=== PATIENT | female | born 1940 | race Caucasian/White ===

== ENCOUNTER → 2017-09-26 | Outpatient (CLI) | payer OTHER | LOC: FIMAGING 12:17 | PROVIDERS: ATTEND Family Medicine | DX: Z12.31 Encounter for screening mammogram for malignant neoplasm of breast (principal); Z80.3 Family history of malignant neoplasm of breast ==

== ENCOUNTER → 2018-03-20 | Outpatient (CLI) | payer OTHER | LOC: BHFA 13:30 | PROVIDERS: ATTEND Internal Medicine Cardiovascular Disease | DX: I49.1 Atrial premature depolarization (principal); I10 Essential (primary) hypertension ==

== ENCOUNTER → 2018-04-02 | Outpatient (CLI) | payer OTHER | LOC: BHFA 10:00 | PROVIDERS: ATTEND Internal Medicine Cardiovascular Disease | DX: I49.1 Atrial premature depolarization (principal); I42.9 Cardiomyopathy, unspecified ==

== ENCOUNTER → 2018-04-30 | Outpatient (CLI) | payer OTHER | LOC: BHFA 09:30 | PROVIDERS: ATTEND Internal Medicine Cardiovascular Disease | DX: I49.1 Atrial premature depolarization (principal); I11.9 Hypertensive heart disease without heart failure; I43 Cardiomyopathy in diseases classified elsewhere; R94.30 Abnormal result of cardiovascular function study, unspecified | CPT/HCPCS: 78452; 93017; A9500; J2785 ==

== ENCOUNTER 2018-08-31 08:52 | Inpatient (IN) | payer OTHER ==
[2018-08-31] MEDS ORDERED: NS 1,000 ML IV ONE (09:13)
[2018-08-31 09:26] LABS: PLATELET COUNT 430 10^3/uL (150-400)
--- NOTE | 2018-08-31 09:37 | EDPHY ---
H & P Stated Complaint: gen abd pain -"constipation" x 5 days Time Seen by Provider: 08/31/18 09:10 HPI/ROS: CHIEF COMPLAINT: Abdominal pain HISTORY OF PRESENT ILLNESS: The patient presents the ED with 5 days of worsening lower abdominal pain. The patient was constipated earlier in the week. She saw her primary care provider who recommended laxatives which she took on . The patient reports she was up all night with crampy abdominal pain. She has had several small loose stools. She denies fever. She does report nausea and loss of appetite. Past surgical history is significant for a hysterectomy. The patient had been on azithromycin approximately 1 week ago for bronchitis. The patient denies any current respiratory symptoms. She denies dysuria. The patient does have a remote history of diverticulitis which was treated with antibiotics. The patient reports that her pain is moderate in nature. She reports associated symptoms of subjective dehydration. REVIEW OF SYSTEMS: A comprehensive 10 point review of systems is otherwise negative aside from elements mentioned in the history of present illness. Source: Patient, Family - Medical/Surgical History Hx Asthma: No Hx Chronic Respiratory Disease: No Hx Diabetes: No Hx Cardiac Disease: No Hx Renal Disease: No Hx Cirrhosis: No Hx Alcoholism: No Hx HIV/AIDS: No Hx Splenectomy or Spleen Trauma: No Other PMH: HTN, Meniere's disease, bladder repair surgery, tilted bladder - Social History Smoking Status: Former smoker - Physical Exam Exam: General Appearance: Alert, no distress Eyes: Pupils equal and round no pallor or injection ENT, Mouth: Dry mucous membranes Respiratory: There are no retractions, lungs are clear to auscultation Cardiovascular: Regular rate and rhythm Gastrointestinal: Tenderness to palpation in the lower abdomen, greatest in the left lower quadrant Neurological: 5/5 strength all 4 extremities Skin: Warm and dry, no rashes Musculoskeletal: Neck is supple nontender Extremities: symmetrical, full range of motion Constitutional: Initial Vital Signs Temperature (C) 36.4 C 08/31/18 08:57 Heart Rate 108 H 08/31/18 08:57 Respiratory Rate 20 08/31/18 08:57 Blood Pressure 124/62 H 08/31/18 08:57 O2 Sat (%) 95 08/31/18 08:57 O2 Delivery Mode Nasal Cannula O2 (L/minute) 2 Allergies/Adverse Reactions: amoxicillin trihydrate [From Augmentin] Allergy (Verified 07/02/14 06:32) potassium clavulanate [From Augmentin] Allergy (Verified 07/02/14 06:32) PCN Allergy (Uncoded 08/31/18 08:54) Home Medications: Medication Instructions Recorded Albuterol [Proventil Inhaler HFA 1 - 2 puffs IH Q4H PRN 07/02/14 (*)] Cetirizine [ZyrTEC 10 mg (*)] 10 mg PO DAILY 07/02/14 Herbals/Supplements -Info Only 1 ea PO DAILY 07/02/14 Hydrochlorothiazide [HCTZ (*)] 25 mg PO DAILY 07/02/14 Lisinopril [Zestril 40 mg (*)] 40 mg PO DAILY 07/02/14 Mometasone 220Mcg Inhaler [Asmanex 1 puffs IH BID 07/02/14 Inh (*)] Multivitamins [Multivitamin (*)] 1 each PO DAILY 07/02/14 Meclizine HCl [Meclizine HCl 25 mg 25 mg PO Q6 PRN #20 tab 07/03/14 (RX,OTC)] Ondansetron Odt [Zofran Odt 4 mg 4 mg PO Q4 PRN #10 tab 07/03/14 (*)] Medical Decision Making - Diagnostics Imaging Results: Imaging Impressions Abdomen CT 08/31/18 09:56 Impression: 1. Constipation. 2. Pericolonic inflammatory stranding around the sigmoid colon within the left hemipelvis suggestive of acute colitis or diverticulitis, without perforation or abscess. 3. Interval distention of the common bile duct, distal pancreatic duct, and gallbladder, with slight soft tissue fullness in the region of the pancreatic head/uncinate process. Recommend MRI examination of the pancreas without and with contrast for further evaluation of these findings. Results and recommendations were discussed with Dr. Siva Larry at 10:45 a.m. ED Course/Re-evaluation: The patient presents the ED with worsening abdominal pain, bloating and constipation. The patient was noted to be significantly tender on exam. The patient had an IV established. She received IV morphine, normal saline and was taken for a stat CT scan of the abdomen and pelvis. CT scan of the abdomen pelvis demonstrates uncomplicated diverticulitis and constipation. The patient also has an incidentally dilated common bile duct. The radiologist does recommend a follow-up MR of the pancreas. The patient was treated with IV Levaquin and Flagyl in the emergency department. She received IV fluids for dehydration and tachycardia. I re-evaluated the patient at 10:11 a.m. and she continues to be fairly tender. She reports that her pain has improved with morphine. Given her anorexia, age and dehydration I do feel she should be admitted to the hospital for IV antibiotic therapy, bowel rest and IV fluids. Consultation was made with the hospitalist service. I discussed the case with Dahlia Santos. The patient will be admitted by Dr. Dereje Marcano. I will defer to the hospitalist service whether the patient will undergo a MRCP in the hospital verses outpatient setting. Differential Diagnosis: Differential diagnosis considered includes pancreatitis, cholecystitis, diverticulitis, perforation, obstruction, constipation, peritonitis - Data Points Laboratory Results: Laboratory Results 08/31/18 09:10 08/31/18 09:10 08/31/18 08/31/18 09:10 09:10 WBC 14.29 10^3/uL H 10^3/uL (3.80-9.50) RBC 4.30 10^6/uL 10^6/uL (4.18-5.33) Hgb 13.2 g/dL g/dL (12.6-16.3) Hct 39.6 % % (38.0-47.0) MCV 92.1 fL fL (81.5-99.8) MCH 30.7 pg pg (27.9-34.1) MCHC 33.3 g/dL g/dL (32.4-36.7) RDW 12.0 % % (11.5-15.2) Plt Count 430 10^3/uL H 10^3/uL (150-400) MPV 10.1 fL fL (8.7-11.7) Neut % (Auto) 84.9 % H % (39.3-74.2) Lymph % (Auto) 7.6 % L % (15.0-45.0) [place] % (Auto) 6.2 % % (4.5-13.0) Eos % (Auto) 0.5 % L % (0.6-7.6) Baso % (Auto) 0.3 % % (0.3-1.7) Nucleat RBC Rel Count 0.0 % % (0.0-0.2) Absolute Neuts (auto) 12.13 10^3/uL H 10^3/uL (1.70-6.50) Absolute Lymphs (auto) 1.09 10^3/uL 10^3/uL (1.00-3.00) Absolute Monos (auto) 0.89 10^3/uL H 10^3/uL (0.30-0.80) Absolute Eos (auto) 0.07 10^3/uL 10^3/uL (0.03-0.40) Absolute Basos (auto) 0.04 10^3/uL 10^3/uL (0.02-0.10) Absolute Nucleated RBC 0.00 10^3/uL 10^3/uL (0-0.01) Immature Gran % 0.5 % % (0.0-1.1) Immature Gran # 0.07 10^3/uL 10^3/uL (0.00-0.10) Sodium 139 mEq/L mEq/L (135-145) Potassium 4.1 mEq/L mEq/L (3.5-5.2) Chloride 98 mEq/L mEq/L (97-110) Carbon Dioxide 26 mEq/l mEq/l (22-31) Anion Gap 15 mEq/L H mEq/L (6-14) BUN 21 mg/dL mg/dL (7-23) Creatinine 0.9 mg/dL mg/dL (0.6-1.0) Estimated GFR > 60 Glucose 120 mg/dL H mg/dL (70-100) Calcium 9.8 mg/dL mg/dL (8.5-10.4) Total Bilirubin 0.7 mg/dL mg/dL (0.1-1.4) Conjugated Bilirubin 0.4 mg/dL mg/dL (0.0-0.5) Unconjugated Bilirubin 0.3 mg/dL mg/dL (0.0-1.1) AST 39 IU/L IU/L (14-46) ALT 48 IU/L IU/L (9-52) Alkaline Phosphatase 154 IU/L H IU/L (38-126) Total Protein 7.0 g/dL g/dL (6.3-8.2) Albumin 4.0 g/dL g/dL (3.5-5.0) Lipase 49 IU/L IU/L (23-300) Medications Given: Metronidazole/Sodium Chloride (Flagyl 500 Mg (Premix)) 100 mls @ 100 mls/hr IV EDNOW ONE PRN Reason: Protocol Stop: 08/31/18 11:50 Last Admin: 08/31/18 10:57 Dose: 100 mls Discontinued Medications Sodium Chloride (Ns) 1,000 mls @ 0 mls/hr IV EDNOW ONE; Wide Open PRN Reason: Protocol Stop: 08/31/18 09:14 Last Admin: 08/31/18 09:23 Dose: 1,000 mls Morphine Sulfate (Morphine) 4 mg IVP EDNOW ONE Stop: 08/31/18 09:38 Last Admin: 08/31/18 09:43 Dose: 4 mg Departure - Departure Disposition: [facility] Inpatient Acute Clinical Impression: Diverticulitis, Common bile duct dilatation Constipation Qualifiers: Constipation type: unspecified constipation type Qualified Code(s): K59.00 - Constipation, unspecified Abdominal pain Qualifiers: Abdominal location: lower abdomen, unspecified Qualified Code(s): R10.30 - Lower abdominal pain, unspecified Condition: Fair Referrals: Sadie Peña MD [Primary Care Provider] - As per Instructions
[2018-08-31] MEDS ORDERED: IOPAMIDOL (ISOVUE-300) 100 ML BTL ONE (10:03)
[2018-08-31] MEDS ORDERED: HYDROmorphONE/DILAUDID 1 MG/ML INJ IVP PRN (11:41)
[2018-08-31] MEDS ORDERED: ACETAMINOPHEN 325 MG TAB PO PRN (11:41)
[2018-08-31] MEDS ORDERED: ONDANSETRON DISINTEGRATING 4 MG TAB PO PRN (11:41)
[2018-08-31] MEDS ORDERED: ONDANSETRON 4 MG/2 ML VIAL IVP PRN (11:41)
[2018-08-31] MEDS ORDERED: NS 500 ML IV ONE (11:43)
[2018-08-31] MEDS ORDERED: NS 1,000 ML IV SCH (11:45)
--- NOTE | 2018-08-31 12:24 | ASMTCMCOM ---
CM Note CM Note Notes: Pt presented to the ED w/generalized abdominal pain and constipation for the past 5 days. Pt admitted for uncomplicated diverticulitis and constipation. Pt admitted for monitoring, bowel rest, and IV abx and fluids. PT/OT ordered. Anticipate pt to stabilize and DC home w/. CM to follow. Date Signed: 08/31/2018 12:24 PM Electronically Signed By:Agata Celeste RN
[2018-08-31] MEDS: HYDROCODONE/APAP 5/325 TAB PO PRN (13:24)
--- NOTE | 2018-08-31 13:53 | PDGENHP ---
History and Physical - Chief Complaint Abdominal pain - History of Present Illness Alethea Santiago is a 77 yo F with a PMHx of HTN, diverticulitis in 2008, Meniere' s disease who presents to [facility] for 5 days of abdominal pain. She reports that about 5 days ago she began having episodes of sharp lower abdominal pain that radiated to both sides. She denies any associated nausea or episode of vomiting. She reports constipation with small loose BMs intermittently since onset of pain. She denies any hematochezia or melena. She was recently dx with a URI and rx Azithromycin which she completed a week ago with significant improvement in respiratory symptoms. She reports she still has a mild non- productive cough. She denies chest pain, SOB, wheezing, hemoptysis, f/c, night sweats. She does report losing about 10 lbs over the past month due to illness. History Information - Allergies/Home Medication List Allergies/Adverse Reactions: amoxicillin trihydrate [From Augmentin] Allergy (Verified 07/02/14 06:32) potassium clavulanate [From Augmentin] Allergy (Verified 07/02/14 06:32) PCN Allergy (Uncoded 08/31/18 08:54) Home Medications: Albuterol [Proventil Inhaler HFA (*)] 1 - 2 puffs IH Q4H PRN 07/02/14 [Last Taken 08/30/18] Cetirizine [ZyrTEC 10 mg (*)] 10 mg PO DAILY 07/02/14 [Last Taken 08/30/18] Herbals/Supplements -Info Only 1 ea PO DAILY 07/02/14 [Last Taken 08/30/18] Hydrochlorothiazide [HCTZ (*)] 25 mg PO DAILY 07/02/14 [Last Taken 08/30/18] Lisinopril [Zestril 40 mg (*)] 40 mg PO DAILY 07/02/14 [Last Taken 08/30/18] Multivitamins [Multivitamin (*)] 1 each PO DAILY 07/02/14 [Last Taken 08/30/18] Aspirin EC [Aspirin EC 81 mg (*)] 81 mg PO BID 08/31/18 [Last Taken 08/30/18 20: 00] Diltiazem HCl [Cartia Xt] 120 mg PO DAILY 08/31/18 [Last Taken 08/30/18] Estrogens,Conjugated [Premarin Vaginal (*)] 0.5 g VG AD 08/31/18 [Last Taken 3 Days Ago ~08/28/18] Fluticasone Propionate [Flovent Diskus] 2 puffs IH DAILY 08/31/18 [Last Taken ] Latanoprost 0.005% [Xalatan 0.005% (*)] 1 drop EACHEYE HS 08/31/18 [Last Taken 08/30/18] I have personally reviewed and updated: family history, medical history, social history, surgical history - Past Medical History hypertension Additional medical history: Menier's diseas, diverticulitis in 2009 - Surgical History Reports: hysterectomy - Family History Positive for: non-pertinent - Social History Smoking Status: Former smoker Alcohol Use: None Drug Use: None Review of Systems Review of Systems: ROS: 10pt was reviewed & negative except for what was stated in HPI & below Physical Exam Physical Exam: Temp Pulse Resp BP Pulse Ox 38.0 C 106 H 16 117/69 94 08/31/18 12:26 08/31/18 12:26 08/31/18 12:26 08/31/18 12:26 08/31/18 12:26 Constitutional: uncomfortable Eyes: PERRL Ears, Nose, Mouth, Throat: moist mucous membranes Cardiovascular: regular rate and rhythym Respiratory: no respiratory distress, clear to auscultation Gastrointestinal: tenderness (b/l lower quadrants ), No guarding, No rebound, No distension Genitourinary: No ortez in urethra Skin: warm Musculoskeletal: full muscle strength Neurologic: AAOx3 Psychiatric: interacting appropriately Lab Data & Imaging Review 08/31/18 09:10 08/31/18 09:10 WBC 14.29 10^3/uL (3.80-9.50) H 08/31/18 09:10 RBC 4.30 10^6/uL (4.18-5.33) 08/31/18 09:10 Hgb 13.2 g/dL (12.6-16.3) 08/31/18 09:10 Hct 39.6 % (38.0-47.0) 08/31/18 09:10 MCV 92.1 fL (81.5-99.8) 08/31/18 09:10 MCH 30.7 pg (27.9-34.1) 08/31/18 09:10 MCHC 33.3 g/dL (32.4-36.7) 08/31/18 09:10 RDW 12.0 % (11.5-15.2) 08/31/18 09:10 Plt Count 430 10^3/uL (150-400) H 08/31/18 09:10 MPV 10.1 fL (8.7-11.7) 08/31/18 09:10 Neut % (Auto) 84.9 % (39.3-74.2) H 08/31/18 09:10 Lymph % (Auto) 7.6 % (15.0-45.0) L 08/31/18 09:10 [place] % (Auto) 6.2 % (4.5-13.0) 08/31/18 09:10 Eos % (Auto) 0.5 % (0.6-7.6) L 08/31/18 09:10 Baso % (Auto) 0.3 % (0.3-1.7) 08/31/18 09:10 Nucleat RBC Rel Count 0.0 % (0.0-0.2) 08/31/18 09:10 Absolute Neuts (auto) 12.13 10^3/uL (1.70-6.50) H 08/31/18 09:10 Absolute Lymphs (auto) 1.09 10^3/uL (1.00-3.00) 08/31/18 09:10 Absolute Monos (auto) 0.89 10^3/uL (0.30-0.80) H 08/31/18 09:10 Absolute Eos (auto) 0.07 10^3/uL (0.03-0.40) 08/31/18 09:10 Absolute Basos (auto) 0.04 10^3/uL (0.02-0.10) 08/31/18 09:10 Absolute Nucleated RBC 0.00 10^3/uL (0-0.01) 08/31/18 09:10 Immature Gran % 0.5 % (0.0-1.1) 08/31/18 09:10 Immature Gran # 0.07 10^3/uL (0.00-0.10) 08/31/18 09:10 Sodium 139 mEq/L (135-145) 08/31/18 09:10 Potassium 4.1 mEq/L (3.5-5.2) 08/31/18 09:10 Chloride 98 mEq/L (97-110) 08/31/18 09:10 Carbon Dioxide 26 mEq/l (22-31) 08/31/18 09:10 Anion Gap 15 mEq/L (6-14) H 08/31/18 09:10 BUN 21 mg/dL (7-23) 08/31/18 09:10 Creatinine 0.9 mg/dL (0.6-1.0) 08/31/18 09:10 Estimated GFR > 60 08/31/18 09:10 Glucose 120 mg/dL (70-100) H 08/31/18 09:10 Calcium 9.8 mg/dL (8.5-10.4) 08/31/18 09:10 Total Bilirubin 0.7 mg/dL (0.1-1.4) 08/31/18 09:10 Conjugated Bilirubin 0.4 mg/dL (0.0-0.5) 08/31/18 09:10 Unconjugated Bilirubin 0.3 mg/dL (0.0-1.1) 08/31/18 09:10 AST 39 IU/L (14-46) 08/31/18 09:10 ALT 48 IU/L (9-52) 08/31/18 09:10 Alkaline Phosphatase 154 IU/L (38-126) H 08/31/18 09:10 Total Protein 7.0 g/dL (6.3-8.2) 08/31/18 09:10 Albumin 4.0 g/dL (3.5-5.0) 08/31/18 09:10 Lipase 49 IU/L (23-300) 08/31/18 09:10 Assessment & Plan Assessment: Diverticulitis - Presenting with 5 days of abdominal pain, intermittent constipation - CT Abd on admission showing pericolonic inflammatory stranding around sigmoid colon c/w diverticulitis vs. acute colitis - Abd exam significant for mild TTP in b/l lower quadrants, no guarding/rigidity /distention - HD stable on admission, slightly tachycardic with leukocytosis - S/p Levaquin and Flagyl in ED, will continue Cipro and Flagyl - Will initiate CLD, will make NPO if patient becomes symptomatic - IVF as below - GI PCR pending Sepsis - Tachycardic 100's, WBC 14.2, afebrile, no tachypnea on admission - Source diverticulitis as above - S/p 1L IVF in ED, will give additional 500 cc bolus (30 cc/kg = 1.8 L) - Will continue mIVF overnight - Abx as above - No cultures collected, if becomes febrile will obtain blood cultures Pancreatic Abnormality on CT - CT Abd on admission showing distention of CBD, distal pancreatic duct, galbladder with slight soft tissue fullness in region of pancreatic head/ uncinate process - Radiology recommending MRI to further evaluate, discussed with patient who would like this performed during this admission, ordered this afternoon - LFTs WNL except mildly elevated AP - Physical exam with no RUQ pain, negative goss's sign - Reports recent 10 lb weight loss in past month, but attributes this to URI and now GI illness - Pending MRI results will consult GI/IR for further evaluation and management Constipation (Acute) - In setting of diverticulitis - Will hold off on bowel protocol for now in setting of infection Recent URI - Completed course of Azithromycin last week - Reports resolution of symptoms except mild cough - Lungs CTA on exam today - Continue to monitor HTN - Continue home BP medications when med rec completed Meniere's Disease - Continue home Meclizine FEN: IVF, CLD DVT PPx: Lovenox Code: FULL Dispo: Admit to Observation
[2018-09-01] MEDS: HYDROCODONE/APAP 5/325 TAB PO PRN ×2 (01:32→19:48)
[2018-09-01 05:01] LABS: PLATELET COUNT 303 10^3/uL (150-400)
[2018-09-01] MEDS ORDERED: ALBUTEROL 60 PUFFS/8 GM MDI IH PRN (08:50)
[2018-09-01] MEDS ORDERED: FLUTICASONE PROPIONATE IH SCH (09:00)
[2018-09-01] MEDS ORDERED: ESTROGENS,CONJUGATED 30 GM CRTUBE VG SCH (09:00)
[2018-09-01] MEDS ORDERED: GADOBUTROL 10 ML VIAL IVP ONE (09:24)
[2018-09-01] MEDS: HYDROCHLOROTHIAZIDE 25 MG TAB PO SCH (09:26)
[2018-09-01] MEDS: CETIRIZINE 10 MG TAB PO SCH (09:26)
[2018-09-01] MEDS: DILTIAZEM CD 120 MG CAP PO SCH (09:26)
[2018-09-01] MEDS: ENOXAPARIN 40 MG/0.4 ML SYR SC SCH (09:27)
[2018-09-01] MEDS: ASPIRIN EC 81 MG TAB PO SCH ×2 (09:27→20:00)
[2018-09-01] MEDS: MULTIVITAMINS 1 EACH TAB PO SCH (09:27)
[2018-09-01] MEDS: LISINOPRIL 40 MG TAB PO SCH (09:27)
[2018-09-01] MEDS: CIPROFLOXACIN 400 MG/DEXTROSE 200 ML IV SCH ×2 (10:54→20:00)
--- NOTE | 2018-09-01 15:50 | HOSPPROG ---
Hospitalist Progress Note Assessment/Plan: Diverticulitis - Presenting with 5 days of abdominal pain, intermittent constipation - CT Abd on admission showing pericolonic inflammatory stranding around sigmoid colon c/w diverticulitis vs. acute colitis - Abd exam significant for mild TTP in b/l lower quadrants, no guarding/rigidity /distention - HD stable on admission, slightly tachycardic with leukocytosis - S/p Levaquin and Flagyl in ED, will continue Cipro and Flagyl (day 2) - ADAT, will make NPO if patient becomes symptomatic - IVF as below - GI PCR pending Sepsis - Tachycardic 100's, WBC 14.2, afebrile, no tachypnea on admission - Source diverticulitis as above - S/p 1L IVF in ED,and additional 500 cc bolus (30 cc/kg = 1.8 L) - Abx as above - No cultures collected, if becomes febrile will obtain blood cultures Pancreatic Abnormality on CT - CT Abd on admission showing distention of CBD, distal pancreatic duct, galbladder with slight soft tissue fullness in region of pancreatic head/ uncinate process - Radiology recommending MRI to further evaluate, discussed with patient who would like this performed during this admission, ordered this afternoon - LFTs WNL except mildly elevated AP - Physical exam with no RUQ pain, negative goss's sign - Reports recent 10 lb weight loss in past month, but attributes this to URI and now GI illness - Pending MRI results will consult GI/IR for further evaluation and management Constipation (Acute) - In setting of diverticulitis - Will hold off on bowel protocol for now in setting of infection Recent URI - Completed course of Azithromycin last week - Reports resolution of symptoms except mild cough - Lungs CTA on exam today - Continue to monitor HTN - Continue home BP medications when med rec completed Meniere's Disease - Continue home Meclizine FEN: IVF, CLD DVT PPx: Lovenox Code: FULL Dispo: Pending clinical course Objective: Vital Signs Temp Pulse Resp BP Pulse Ox 37.0 C 91 14 128/66 H 94 09/01/18 12:00 09/01/18 12:00 09/01/18 12:00 09/01/18 12:00 09/01/18 12:00 Laboratory Results 09/01/18 04:20 08/31/18 09/01/18 09/02/18 05:59 05:59 05:59 Intake Total 2150 Output Total 400 Balance 1750 ICD10 Worksheet Patient Problems: Problems Problem Status Onset Abdominal pain Acute Common bile duct dilatation Acute Constipation Acute Diverticulitis Acute
--- NOTE | 2018-09-01 16:17 | PDMN ---
Medical Necessity Medical necessity: Pt meets IP criteria as of 09/01/18 per MD and MCG M-150 ( Diverticulitis, Acute); est los > 2 mn for ongoing tx and management of diverticulitis with tachycardia, leukocytosis, and pancreatic abnormality on CT ; requiring IVF, IV ABX, further workup, serial labs, pain control and diet restriction with planned advancement. Hx HTN and diverticulitis.
[2018-09-01] MEDS: FLUTICASONE PROPIONATE IH SCH (20:03)
[2018-09-01] MEDS ORDERED: LATANOPROST 0.005% 2.5 ML OPHT DROPS EACHEYE SCH (21:00)
[2018-09-02 07:29] VITALS: BP 128/65
[2018-09-02] MEDS: CETIRIZINE 10 MG TAB PO SCH (08:13)
[2018-09-02] MEDS: MULTIVITAMINS 1 EACH TAB PO SCH (08:13)
[2018-09-02] MEDS: ASPIRIN EC 81 MG TAB PO SCH (08:13)
[2018-09-02] MEDS: HYDROCHLOROTHIAZIDE 25 MG TAB PO SCH (08:13)
[2018-09-02] MEDS: LISINOPRIL 40 MG TAB PO SCH (08:14)
[2018-09-02] MEDS: DILTIAZEM CD 120 MG CAP PO SCH (08:14)
[2018-09-02] MEDS: CIPROFLOXACIN 400 MG/DEXTROSE 200 ML IV SCH (08:15)
[2018-09-02] MEDS: ENOXAPARIN 40 MG/0.4 ML SYR SC SCH (08:19)
--- NOTE | 2018-09-02 09:06 | PDDCSUM ---
Discharge Summary Discharge Summary: Date of Admission: August 31, 2018 Date of Discharge: September 02, 2017 Discharge Diagnoses: Acute uncomplicated sigmoid diverticulitis, resolving Constipation, improving Hypertension Recent bronchitis, resolved Meniere's disease Hiatal hernia Admission Diagnoses: Acute diverticulitis Sepsis Pancreatic abnormality on imaging Acute constipation Recent URI Hypertension Meniere's disease Consultants: None. Hospital Course: The patient is a 77-year-old female who presented with 5 days of worsening abdominal pain and intermittent constipation. She had previously been hospitalized for acute diverticulitis in the past. CT of the abdomen and pelvis confirmed acute diverticulitis and the patient was treated with IV antibiotics. She received a total of 3 days of antibiotics in the hospital. Patient was tolerating a light diet and reported no nausea or vomiting throughout her illness. She has several small bowel movements daily. Her abdominal pain improved slightly. She has been able to ambulate and perform ADLs , so home healthcare is not needed. Since she is clinically stable, she is being discharged home to continue oral antibiotics. Of note, the initial CT scan of the abdomen suggested common bile duct dilatation with possible pancreatic abnormality. Follow-up MRI of the abdomen suggested that this finding was due to a filling defect causing artifact in the common bile duct. Physical Exam: VSS. General: The patient is an elderly female who is alert and in no acute distress. HEENT: normocephalic, extraocular movements intact, conjunctivae clear. Mucous membranes moist. Neck: trachea midline, no visible masses. Abd: soft and mildly distended. Bowel sounds present in all 4 quadrants. Mildly tender to palpation throughout. Musculoskeletal: Normal muscle tone and bulk. Neuro: cranial nerves II - XII grossly intact. Intact gross motor and sensory function. Psych: appropriate mood/affect. Skin: Mild pallor. Heme/lymph: No peripheral edema. Condition: Stable. Discharged to: Home. Pertinent tests/labs/imaging: CT of abdomen and pelvis with contrast: 1. Constipation. 2. Pericolonic inflammatory stranding around the sigmoid colon within the left hemipelvis suggestive of acute colitis or diverticulitis, without perforation or abscess. 3. Interval distention of the common bile duct, distal pancreatic duct, and gallbladder, with slight soft tissue fullness in the region of the pancreatic head/uncinate process. Recommend MRI examination of the pancreas without and with contrast for further evaluation of these findings. MRI abd wwo contast: 1. No evidence of pancreatic head mass on MRI imaging. 2. On one series obtained, there is well delineated choledocholithiasis, however , this is not confirmed on additional sequences acquired. However, with mild to moderate dilatation of the biliary system, this finding is felt to be suspicious. Confirmation can be attempted with right upper quadrant ultrasound versus ERCP procedure. 3. Simple cyst upper pole left kidney. 4. Moderate hiatal hernia. Addendum Upon further review, the potential filling defects seen in the distal common bile duct on only one sequence most likely is secondary to flow related artifact and not related to common bile duct calculus. ERCP, therefore, as NOT felt to be necessary unless there are significant abnormal LFTs. Medications: Please see med rec form. Resuming home meds. New meds: Cipro 500mg po BID x 4 days. Flagyl 500mg po TID x 4 days. [place] 5/ 325mg take 1-2 tabs po up to QID prn pain #20. Special instructions: Return to ED if symptoms worsen. For constipation: Try stool softeners and laxatives. Start with one and if there is no result, add a 2nd agent. Sodium docusate (Colace), senna, Miralax, Milk of Magnesia, Dulcolax, glycerin suppositories, or tap water/soap vira enemas. Drink plenty of water. Follow up: Follow up with PCP Dr. Sadie Peña or 1 of her colleagues within 1 week. Greater than 30 minutes of total time was spent on counseling and coordination of care for this patient's discharge.
[2018-09-02] MEDS: FLUTICASONE PROPIONATE IH SCH (09:25)
--- NOTE | 2018-09-02 11:40 | ASDISCHSUM ---
Discharge Information Plan Status:Home with No Needs Medically Cleared to Leave:09/02/2018 Discharge Date:09/02/2018 CM D/C Disposition:Home, Routine, Self-Care ADT D/C Disposition:Home, Routine, Self-Care Projected Discharge Date:09/02/2018 12:00 AM Transportation at D/C:Family Discharge Delay Reason: Follow-Up Date:09/02/2018 12:00 AM Discharge Slot: Final Diagnosis:diverticulitis Placement Information Patient Contact Information Contact Name:ROGE Relationship: Address:[address] City:[place] Alternate Phone: [facility]/Zip Code:[place] [address] Email: Financial Information Financial Class:Medicare Primary Plan Desc:MEDICARE INPATIENT Primary Plan Number:[id number] Secondary Plan Desc:PAPO ARTUR[employer] CESAR Secondary Plan Number:[id number] Assessment Information LACE LACE Length of stay for Answers: 1 day current admission Acuity / Level of Answers: No Care: Did the patient have an inpatient admission? 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 Pt admitted for uncomplicated diverticulitis and constipation. Pt admitted for monitoring, bowel rest, and IV abx and fluids. PT/OT ordered. Anticipate pt to stabilize and DC home w/. CM to follow. Date Signed: 08/31/2018 12:24 PM Electronically Signed By:Agata Celeste RN Case Management Discharge Plan Note Case Management Discharge Discharge Order Complete? Answers: Yes Followup Appointment 09/02/2018 12:00 AM Patient to Obtain Answers: Independently Medications Transportation Arranged Answers: Family/Friends Transport will Pick (Date 09/02/2018 12:00 AM & Time) Discharge Comments Notes: CM met with patient. PT/OT felt she did not need therapist. No further CM needs noted at this time. Date Signed: 09/02/2018 10:39 AM Electronically Signed By:Meliza Lawler Intervention Information Intervention Type:*Incorrect Registration Date of Service:08/31/2018 01:47 PM Patient Type:Inpatient Staff Member:YARA Neal Courtney Hours: Discipline: Severity: Comment: Intervention Type:*IM-Signed Date of Service:09/02/2018 11:32 AM Patient Type:Inpatient Staff Member:Meliza Lawler Hours: Discipline: Severity: Comment:
[2018-09-05] MEDS ORDERED: ESTROGENS,CONJUGATED 30 GM CRTUBE VG SCH (21:00)
== END 2018-09-02 13:49 | disposition home or self-care (01) | DRG 392 ==
LOC: INTOOBSV 11:15 → F3E 12:18 → OBSVTOIN 09-01 15:51
PROVIDERS: ADMIT Internal Medicine; ATTEND Internal Medicine
DX: K57.32 Diverticulitis of large intestine without perforation or abscess without bleeding (principal); K59.00 Constipation, unspecified; I10 Essential (primary) hypertension; K44.9 Diaphragmatic hernia without obstruction or gangrene; H81.09 Meniere's disease, unspecified ear; Z87.891 Personal history of nicotine dependence
CPT/HCPCS: 96365; A9585; G0378; J0744; J1650; J1956; J2270; Q9967